=== PATIENT | male | born 1945 | race Caucasian/White ===

== ENCOUNTER 2016-07-08 08:00 | Inpatient (IN) ==
[2016-07-06 09:03] LABS: Basophils % 0.4 % (0.0-0.8); Eosinophils # 0.2 10*3/uL (0.0-0.87); Hematocrit 33.4 VOL% (42.0-52.0); Hemoglobin 10.1 GM/DL (14.0-18.0); Immature Granulocytes % 0.4 %; Immature Granulocytes Absolute 0.04 #; Lymphocytes # 1.3 10*3/uL (1.4-4.0); Lymphocytes % 14.1 % (21.2-54.2); Mean Corpuscular HGB Conc 30.2 GM/DL (32-36); Mean Corpuscular Hemoglobin 28 PG (27-34); Mean Platelet Volume 8.8 FL (9.6-12.0); Monocytes # 0.8 10*3/uL (0.11-0.8); Monocytes % 8.9 % (1.7-12.7); Neutrophils % 74.2 % (38.7-73.9); Platelet Count 343 T/CUMM (130-400); Red Blood Count 3.63 MC/CUMM (3.8-5.5); Red Cell Distribution Width 14.8 % (9.3-17.3); White Blood Count 9.4 T/CUMM (4-12)
--- NOTE | 2016-07-06 09:16 | XRay Report ---
XR chest 2V Date: 07/06/2016 12:00 AM History: Malignant neoplasm of rectum, dementia Comparison: None Technique: PA and lateral chest Findings: The heart is small and compressed by the overexpanded lungs. Probable chronic scarring in the lungs with asymmetric density of the right upper lobe location. 6.7 mm nodular density laterally in the right midlung zone. Minimal atelectasis. Unremarkable mediastinum with degenerative changes. 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 Asymmetric density in the right upper lobe which may be related to scarring but it is difficult to exclude other pleural-based pathology. Additional indeterminate 6.7 mm pulmonary nodule laterally in the right midlung zone. Follow-up chest x-ray or CT may be helpful for further evaluation. PROCEDURE INTERPRETED AT [facility] DEPARTMENT OF RADIOLOGY Final Report Signed by: Dr. Jeannette Dugan
--- NOTE | 2016-07-06 09:37 | CT Report ---
Referring physician: [facility] III EXAM: CT abdomen and pelvis with contrast DATE: 07/06/2016 COMPARISON: None REASON: Rectal cancer TECHNIQUE: Axial images of the abdomen and pelvis were obtained after administration of 100 cc of Omnipaque 350 IV contrast. Oral contrast was also administered. Coronal and sagittal reformatted images were also provided. Total DLP is 463.50 mGy*cm. FINDINGS: Subsegmental atelectasis/scarring at the visualized lung bases. Coronary artery calcifications. Minimal elongation of the right lobe of the liver with no dilated ducts. 6 mm, 3 mm, and 3 mm hypodensities in the left lobe of the liver. Contracted gallbladder with no definite gallstones identified. The spleen, pancreas and adrenal glands have an unremarkable appearance. 10 mm left lower pole renal calculus with no definite ureteral calculi. Calcification in the wall of the dilated abdominal aorta. The aorta measures 43 mm in maximal transverse diameter in the infrarenal location. Atheromatous plaque formation noted. Right common iliac artery measures 12 mm. Left common iliac artery measures 10 mm. Incomplete distention of the stomach with oral contrast mixed with food. No significant dilatation of the small bowel. Limited oral contrast in the distal colon with increased fecal material and diverticulosis. No evidence of diverticulitis, appendicitis free air, or free fluid. Ill-defined soft tissue mass in the rectal location. Unfortunately there is no significant oral contrast in the rectum. Probable extension of the mass into the perirectal fat especially on the right side. Enlarged lymph nodes just above the level of the right seminal vesicle. The prostate contains calcifications and measures 52 mm in diameter. No definite urinary bladder pathology is identified. Chronic L4 compression fracture with degenerative changes and ill-defined areas of rarefaction including a 15 mm finding at L2. IMPRESSION: Rectal mass with reported carcinoma with associated possible tiffany metastasis. Very small hypodensities in the liver which could be related to small cysts or early metastatic disease. Nonspecific contraction of the gallbladder with 10 mm left lower pole renal calculus. Diffuse arterial calcifications with 43 mm infrarenal AAA and minimal dilatation of the iliac arteries. Chronic appearing L4 compression fracture with indeterminate ill-defined areas of rarefaction. Nonspecific enlargement of the prostate. PET/CT and/or bone scan may be helpful for further evaluation of these findings. The CT exam was performed using one or more of the following dose reduction techniques: Automated exposure control and adjustment of the mA and/or kV according to patient size. PROCEDURE INTERPRETED AT [facility] DEPARTMENT OF RADIOLOGY Final Report Signed by: Dr. Jeannette Dugan
[2016-07-06 09:38] LABS: Albumin 3.2 G/DL (3.4-5.0); Bilirubin,Total 0.5 MG/DL (0.2-1.0); Calcium 9.3 MG/DL (8.5-10.1); Osmolality,Calculated 280.4 MOS/KG (273-304); Potassium 4.6 MMOL/L (3.5-5.1); Total Protein 6.8 G/DL (6.4-8.3)
[~2016-07-08 08:00] MED LIST: cefOXitin 1,000 MG in SODIUM CHLORIDE 0.9% 100 ML IV ONE
[2016-07-08] MEDS: LACTATED RINGERS 1,000 ML IV SCH (09:00)
[2016-07-08] MEDS ORDERED: SODIUM CHLORIDE 0.9% 100 ML IV ONE (09:15)
[2016-07-08] MEDS ORDERED: BUPIVACAINE MPF 0.25% /EPI 30 ML VIAL ONE (09:51)
[2016-07-08] MEDS ORDERED: ONDANSETRON 4 MG/2 ML VIAL IV PRN (11:26)
[2016-07-08] MEDS ORDERED: MORPHINE 2 MG/1 ML SYRINGE IV PRN (11:26)
--- NOTE | 2016-07-08 11:26 | Operative Note ---
Date of procedure: 07/08/16 Pre-op diagnosis: Locally advanced rectal cancer Post-op diagnosis: same Procedure: Laparoscopic sigmoid end colostomy Findings and technique: After informed consent was obtained the patient was brought to the operating room and placed in supine position. After successful induction with general anesthesia the patient's abdomen was prepped and draped in usual sterile fashion. The desired spot for colostomy placement had been marked preoperatively by the enterostomal therapy nurse. A circular incision was made at this location and dissection carried down to the fascia which was incised vertically and the peritoneal cavity entered under direct vision. I identified sigmoid colon and brought it up into the colostomy site with [place] and March the colon proximally with 2 long sutures and distally with a single long stitch suture. It was difficult to tell through this colostomy site if this was truly proximal or distal so I inserted a Norbert cannula and established a pneumoperitoneum and inserted the laparoscopic camera. Laparoscopy revealed no evidence of metastatic disease within the abdomen on the visualized surfaces and the liver appeared free of metastasis as well. I used laparoscopy to confirm that my orientation of the colon was correct and the camera and cannula were removed and the gas evacuated. The colon was then re-delivered up through the fascial defect and transected with a VAISHALI stapling device in the proximal end matured to the skin. A small vent was made in the distal and where it was sutured to the corner of the stoma so that this was essentially a double-barreled colostomy with a very small event of the distal colon segment. A colostomy bag was applied. The colostomy was matured to the skin prior to placement of the back with multiple Vicryl sutures and also the colon was sutured to the fascia with Vicryl suture. He appeared to tolerate the procedure well. Anesthesia: GETA Surgeon / Physician: Sandip Mojica III. Estimated blood loss: minimal Specimens: none sent Condition: stable Disposition: PACU Results - Labs CBC & BMP: 07/06/16 08:57 07/06/16 08:57 Discharge Plan - Discharge Medications No Action Donepezil [Aricept] 10 mg PO DAILY Memantine HCl [Namenda XR] 1 tablet PO BID Pedi Mv No.79/Ferrous Fumarate [Flintstones w/Iron Chew Tab] 2 tablet PO DAILY Fluticasone 50 Mcg Nasal [place] [Flonase Nasal [place]] 1 spray BOTH NARES DAILY Citalopram [CeleXA] 20 mg PO DAILY Cranberry Fruit Extract [Cranberry] 500 mg PO DAILY QUEtiapine [SEROquel] 25 mg PO BEDTIME Ibuprofen 600 mg PO TID - Follow Up or Referral - Forms/Instructions
--- NOTE | 2016-07-08 11:37 | Anesthesia Post-Op ---
Anesthesia Post OP - Post Ansesthetic Evaluation Patient seen in post op: Yes Resp: within normal limits CV: within normal limits Mental: within normal limits Temp: within normal limits [id number]: within normal limits Nausea and Vomiting: within normal limits Pain: within normal limits
[2016-07-08] MEDS ORDERED: ACETAMINOPHEN 1,000 MG/100 ML VIAL IV ONE (11:39)
[2016-07-08] MEDS ORDERED: SEVOFLURANE 1 UNIT/15 MINUTE INH ONE (11:39)
[2016-07-08] MEDS ORDERED: LACTATED RINGERS 1,000 ML IV ONE (11:39)
[2016-07-08] MEDS ORDERED: fentaNYL 100 MCG/2 ML VIAL ONE (11:39)
[2016-07-08] MEDS ORDERED: ALBUMIN 5% 12.5 GM/250 ML VIAL IV ONE (11:39)
[2016-07-08] MEDS ORDERED: MIDAZOLAM 2 MG/2 ML VIAL ONE (11:39)
[2016-07-08] MEDS ORDERED: ePHEDrine 50 MG/ML AMP ONE (11:40)
--- NOTE | 2016-07-08 15:57 | Event Note ---
Patient is postop day 0 status post laparoscopic end colostomy. The patient is sitting up in the bed and has completed a full tray without nausea or vomiting. He denies significant pain. Does not get out of bed at this time. His neuro status is compromised so ROS is not completely reliable, but family member at bedside corroborates history. Denies chest pain, shortness of breath, wheeze or cough. Vitals are stable Heart regular rate and rhythm Lungs clear to auscultation bilaterally Abdomen with ostomy site with pink stoma and bag intact. No stool present at this time. Abdomen is soft and minimally tender. Bowel sounds are hypoactive. Extremities: No calf tenderness or pedal edema is appreciated Assessment and plan: Patient is stable postoperatively today. Continue current plan of care. Pain management. Diet as tolerated. Encourage incentive spirometer and advance activity as tolerated. Family member the room reports Dr. Hrat requesting a CT of his carotids due to significantly significant stenosis found outpatient on a carotid Doppler; and she is requesting we complete this while the patient is here. We will inquire exactly what imaging is recommended to see if this is appropriate.
[2016-07-08] MEDS: DEXTROSE 5% NACL 0.45% 1,000 ML IV SCH (18:29)
[2016-07-08] MEDS: QUEtiapine 25 MG TABLET PO SCH (21:33)
[2016-07-08] MEDS: MEMANTINE 10 MG TABLET PO SCH (21:33)
[2016-07-09] MEDS: DEXTROSE 5% NACL 0.45% 1,000 ML IV SCH ×4 (03:30→20:38)
[2016-07-09] MEDS: ENOXAPARIN 30 MG/0.3 ML SYRINGE SUBCUT SCH (05:37)
[2016-07-09 07:29] LABS: Basophils % 0.1 % (0.0-0.8); Hematocrit 30.5 VOL% (42.0-52.0); Hemoglobin 9.4 GM/DL (14.0-18.0); Immature Granulocytes % 0.6 %; Immature Granulocytes Absolute 0.05 #; Lymphocytes # 0.6 10*3/uL (1.4-4.0); Lymphocytes % 6.3 % (21.2-54.2); Mean Corpuscular HGB Conc 30.8 GM/DL (32-36); Mean Corpuscular Hemoglobin 28 PG (27-34); Mean Corpuscular Volume 90.5 FL (87-102); Mean Platelet Volume 8.8 FL (9.6-12.0); Monocytes # 0.3 10*3/uL (0.11-0.8); Neutrophils # 8.1 10*3/uL (1.4-7.4); Platelet Count 296 T/CUMM (130-400); Red Blood Count 3.37 MC/CUMM (3.8-5.5); Red Cell Distribution Width 14.5 % (9.3-17.3)
[2016-07-09 08:05] LABS: Calcium 8.6 MG/DL (8.5-10.1); Osmolality,Calculated 277.7 MOS/KG (273-304); Potassium 4.6 MMOL/L (3.5-5.1)
[2016-07-09] MEDS ORDERED: DONEPEZIL 10 MG TABLET PO SCH (09:00)
[2016-07-09] MEDS ORDERED: CITALOPRAM 20 MG TABLET PO SCH (09:00)
[2016-07-09] MEDS: MEMANTINE 10 MG TABLET PO SCH ×2 (09:03→17:36)
[2016-07-09] MEDS: LACTATED RINGERS 1,000 ML IV SCH (09:03)
[2016-07-09] MEDS: FLUTICASONE 50 MCG NASAL SPRAY 16 GM BOTTLE BOTH NARES SCH (09:03)
[2016-07-09] MEDS ORDERED: MORPHINE 2 MG/1 ML SYRINGE IM PRN (13:09)
--- NOTE | 2016-07-09 13:18 | Event Note ---
S: Patient is postop day #1 status post laparoscopic sigmoid end colostomy as part of treatment for locally advanced rectal cancer. The patient has advanced dementia and has been with the bedside and serves and assisting in communication. He has tolerated oral intake with some reflux symptoms overnight , but he is eating a regular diet well. Tolerating fluids and voiding and his brief. Had an episode of increased pain overnight for she received morphine which caused hallucinations; resolved without intervention. Signs of chest pain , shortness of breath, wheeze or cough overnight. No output from the colostomy. O: Vital signs stable Heart regular rate and rhythm Lungs clear to auscultate bilaterally Abdomen colostomy site with pink stoma and no evidence of surrounding skin irritation. Gas noted in colostomy bag with a few cc of blood. Abdomen is soft and appropriately tender postoperatively. Bowel sounds are present. Extremities: No pedal edema noted. Calves soft and nontender.\ Assessment and plan: Patient is postop day #1 status post laparoscopic sigmoid and colostomy as part of treatment for locally advanced rectal cancer. Currently stable. Monitor bowel function. Diet as tolerated Encourage mobilization. Avoid IV narcotics if possible. Scheduled dementia meds as dosed at home. DVT ppx: SCD. Lovenox. Gi ppx: ppi daily. Dispo: pt can d/c home with family and HH services (established with Marco ) once colostomy function apparent.
--- NOTE | 2016-07-09 14:37 | Discharge Summary ---
Hospital Course - Hospital Course Hospital Course: Patient is a 71-year-old male who underwent laparoscopic sigmoid end colostomy for locally advanced rectal cancer. He required inpatient hospitalization for pain management and to ensure colostomy function. He was ultimately tolerating a full regular diet without difficulty, tolerating activities without difficulty , voiding without difficulty and had function of his colostomy. He was ultimately discharged home in the care of his family who is very active as he has advanced dementia with the assistance of home health services in good condition. Diagnosis - Discharge Diagnosis (1) Rectal cancer Status: Acute (2) Status post colostomy Status: Acute Specialty Discharge - Follow Up or Referrals Follow up with: Sandip Mojica III., MD [Physician] - 07/28/16 9:15 am Discharge Plan - Discharge Data Disposition: Home Health Service Condition at Discharge: Stable Discharge Diet: advance to your usual diet Activity: resume usual activities as tolerated Hygiene: may shower Contact your physician if you experience:: fever over 101, Difficulty voiding, Redness or swelling, Nausea/Vomiting, Shortness of breath, Bleeding, pain uncontrolled by pain medications Wound / Dressing Care Instructions: Routine colostomy care with home health services - Discharge Medications New HYDROcodone/ACETAMIN 7.5-325 [[place] 7.5-325] 0.5 - 1 tablet PO Q6H PRN #20 tablet PRN Reason: Pain Moderate To Severe (4-10) Continue Donepezil [Aricept] 10 mg PO DAILY Memantine HCl [Namenda XR] 1 tablet PO BID Pedi Mv No.79/Ferrous Fumarate [Flintstones w/Iron Chew Tab] 2 tablet PO DAILY Fluticasone 50 Mcg Nasal [place] [Flonase Nasal [place]] 1 spray BOTH NARES DAILY Citalopram [CeleXA] 20 mg PO DAILY Cranberry Fruit Extract [Cranberry] 500 mg PO DAILY QUEtiapine [SEROquel] 25 mg PO BEDTIME Ibuprofen 600 mg PO TID - Follow Up or Referral Follow Up: Sandip Mojica III., MD [Physician] - 07/28/16 9:15 am Doc Shipman MD [Physician] - (TBD - review at Dr. Mojica appt when pathology available for review) - Forms/Instructions Instructions: Colostomy Care (DC) Additional Discharge Instructions: F/u PCP 1-2 wks for routine hospital follow up Exam - Constitutional Vitals: Period Temp Pulse Resp BP Sys/Doherty Pulse Ox Last 24 Hr 97.8 F-99.0 F 58-75 16-19 127-165/57-90 97-100 General appearance: no acute distress, other (Family member at bedside for care instructions) - Head Head exam: Present: normal inspection, normocephalic, atraumatic - Eye Eye exam: Absent: conjunctival injection, scleral icterus - Respiratory Respiratory exam: Present: clear to auscultation bilaterally - Cardiovascular Cardiovascular exam: Present: regular rate and rhythm - GI/Abdominal GI/Abdominal exam: Present: normal bowel sounds, soft, other (colostomy with stool present; stoma pink and now surrounding skin irritation noted). Absent: distended, tenderness - Neurological Exam Neurological exam: Present: alert, oriented X3 - Psychiatric Psychiatric exam: Present: normal affect, normal mood - Skin Skin exam: Present: normal color, warm Discharge Results Procedures and tests throughout hospitalization: Pending Orders 07/10/16 04:00 Basic Metabolic Panel IN AM Labs on day of discharge: Labs from last 24 hours 07/09/16 07/09/16 06:55 06:55 WBC 9.0 RBC 3.37 L Hgb 9.4 L Hct 30.5 L MCV 90.5 MCH 28 MCHC 30.8 L RDW 14.5 Plt Count 296 MPV 8.8 L Neut % (Auto) 90.0 H Lymph % (Auto) 6.3 L [place] % (Auto) 3.0 Eos % (Auto) 0.0 Baso % (Auto) 0.1 Neut # (Auto) 8.1 H Lymph # (Auto) 0.6 L [place] # (Auto) 0.3 Eos # (Auto) 0.0 Baso # (Auto) 0.0 Immature Gran % 0.6 Nucleated RBC % 0.0 Immature Gran # 0.05 Nucleated RBCs # 0.00 Sodium 138 Potassium 4.6 Chloride 103 Carbon Dioxide 28 Anion Gap 11.6 BUN 13 Creatinine 1.60 H GFR Calculation 45 BUN/Creatinine Ratio 8.00 Glucose 157 H Calculated Osmolality 277.7 Calcium 8.6 - Imaging and Cardiology Procedure: Chest x-ray: image reviewed by me, report reviewed by me, CT Abdomen and Pelvis: image reviewed by me, report reviewed by me DS: Provider Date of admission: 07/08/2016 Primary care physician: Rod Powell DO Attending physician on admission: Sandip Galina, III Consults: 07/09/16 10:01 Consult to Case Mgmt/Social Srvs [CONS] Routine Reason for Case Mgmt/Social Srvs: Home Health Consult Comment: Ostomy nurse to teach & care for Pt's Colectomy. Pt has Deaconness 07/09/16 13:10 Consult to Wound Care - [place] [CONS] Routine Reason for Wound Care: Other Consult Comment: routine colostomy care Discharging clinician: Bailey Kowalski PA-C
[2016-07-09] MEDS: QUEtiapine 25 MG TABLET PO SCH (20:38)
[2016-07-10] MEDS: DEXTROSE 5% NACL 0.45% 1,000 ML IV SCH ×2 (01:06→10:40)
[2016-07-10] MEDS: ENOXAPARIN 30 MG/0.3 ML SYRINGE SUBCUT SCH (06:00)
[2016-07-10] MEDS: MEMANTINE 10 MG TABLET PO SCH ×3 (06:26→08:17)
[2016-07-10] MEDS: DONEPEZIL 10 MG TABLET PO SCH ×2 (06:26→08:16)
[2016-07-10] MEDS: CITALOPRAM 20 MG TABLET PO SCH ×2 (06:26→08:16)
[2016-07-10 07:27] LABS: Calcium 8.3 MG/DL (8.5-10.1); Osmolality,Calculated 277.4 MOS/KG (273-304); Potassium 3.9 MMOL/L (3.5-5.1)
[2016-07-10] MEDS: LACTATED RINGERS 1,000 ML IV SCH (08:12)
[2016-07-10] MEDS: FLUTICASONE 50 MCG NASAL SPRAY 16 GM BOTTLE BOTH NARES SCH (08:17)
--- NOTE | 2016-07-10 15:08 | Event Note ---
T-max 100.0 vital signs stable. Tolerating a diet with no nausea or vomiting. Creatinine normal. Abdomen is soft nondistended and no tenderness elicited. Stoma is pink and patent with lots of air but no stool in the bag. We will continue his current diet and await functioning of his colostomy before discharge.
[2016-07-10] MEDS: QUEtiapine 25 MG TABLET PO SCH (20:36)
[2016-07-11] MEDS: ENOXAPARIN 30 MG/0.3 ML SYRINGE SUBCUT SCH (05:38)
[2016-07-11] MEDS: DONEPEZIL 10 MG TABLET PO SCH (08:52)
[2016-07-11] MEDS: MEMANTINE 10 MG TABLET PO SCH ×2 (08:52)
[2016-07-11] MEDS: CITALOPRAM 20 MG TABLET PO SCH (08:52)
[2016-07-11] MEDS: FLUTICASONE 50 MCG NASAL SPRAY 16 GM BOTTLE BOTH NARES SCH (08:52)
[2016-07-11] MEDS: LACTATED RINGERS 1,000 ML IV SCH (10:26)
--- NOTE | 2016-07-11 12:06 | Event Note ---
Patient looks good but says he does not feel as well today. T-max 99.9 vital signs stable. He is tolerating a diet. On exam unable to appreciate any significant tenderness. The stoma is pink and patent and now working with good stooling in the back. He denies nausea. Admits to some abdominal pain but his exam is unimpressive. His family is not with him today and he is not a good historian because of his dementia. Will continue current treatment and possibly home tomorrow.
[2016-07-11] MEDS: ACETAMINOPHEN 325 MG TABLET PO PRN (15:45)
[2016-07-11] MEDS: QUEtiapine 25 MG TABLET PO SCH (21:02)
[2016-07-11] MEDS: DESITIN 4OZ/NYSTATIN 15 GRAM MIXTURE PASTE TOP SCH (21:02)
[2016-07-12] MEDS: ENOXAPARIN 30 MG/0.3 ML SYRINGE SUBCUT SCH (05:17)
[2016-07-12] MEDS: CITALOPRAM 20 MG TABLET PO SCH (08:41)
[2016-07-12] MEDS: DONEPEZIL 10 MG TABLET PO SCH (08:42)
[2016-07-12] MEDS: MEMANTINE 10 MG TABLET PO SCH ×2 (08:42)
[2016-07-12] MEDS: FLUTICASONE 50 MCG NASAL SPRAY 16 GM BOTTLE BOTH NARES SCH (08:42)
[2016-07-12] MEDS: DESITIN 4OZ/NYSTATIN 15 GRAM MIXTURE PASTE TOP SCH (08:42)
--- NOTE | 2016-07-12 09:03 | Event Note ---
He feels well. He is tolerating a diet and his ostomy is functioning well. His abdomen is benign I see no evidence of complications. Should be fine for discharge and I will follow him up in the office in the next couple weeks.
[2016-07-12] MEDS: ACETAMINOPHEN 325 MG TABLET PO PRN (11:05)
[2016-07-12 11:48] VITALS: BP 127/71
--- NOTE | 2016-07-12 12:31 | Physician Query Form ---
CLICK EDIT DOCUMENT TO SELECT QUERY ANSWER --> OK --> SIGN Ana María Campos RN Clinical Buffer Copper W) [phone] (f) [phone] [email or web address] PROVIDERS: Make your selection(s) from the choices in EACH section by typing an "x" and enter comments in the comment section. Please use your independent medical judgment in providing your response. This request does not imply that any particular answer is desired or expected. CLINICAL INDICATORS: (Providers should not edit this section) Based on lab results of creatinine of 1.60 and with a GFR of 45 and decreased to 1.00. Pt. treated with IV fluids. Clarify which of the following most accurately represents the patient's renal status: (x) Acute kidney injury (non-traumatic) ( ) Acute renal failure ( ) Acute renal failure with underlying Chronic Kidney Disease (CKD) - please provide stage below ( ) CKD - please provide stage below ( ) Other, please specify: ( ) Clinically unable to determine Chronic Kidney Disease Stages Source: National Kidney Disease Foundation ( ) Stage I (eGFR > or = 90) ( ) Stage II (eGFR 60 - 89) ( ) Stage III (eGFR 30 - 59) ( ) Stage IV (eGFR 15 - 29) ( ) Stage V (eGFR < 15 or dialysis) COMMENTS: Acute kidney injury which occurred and resolved during hospitalization. Documented in discharge summary. PLEASE ALSO DOCUMENT RESPONSE IN PROGRESS NOTES AND/OR DISCHARGE SUMMARY Use of terms such as suspected, likely, or probable (associated with a specific diagnosis that is being evaluated, monitored, or treated as if it exists) are acceptable and can be restated in the discharge summary if not ruled out. MTDD
[2016-07-13] MEDS ORDERED: ENOXAPARIN 40 MG/0.4 ML SYRINGE SUBCUT SCH (09:00)
== END 2016-07-12 12:39 | disposition home health service (06) | DRG 330 ==
LOC: N.OR 08:00 → N.SDSINP 08:00 → EDSTATUS 11:00 → N.3E 13:11 → UNDODISIN 07-12 12:39
PROVIDERS: ADMIT Surgery; ATTEND Surgery

== ENCOUNTER 2016-08-03 00:08 | Inpatient (IN) ==
[2016-08-03] MEDS ORDERED: PROMETHAZINE 25 MG/1 ML VIAL ONE (00:17)
[2016-08-03] MEDS ORDERED: HYDROmorphone 2 MG/1 ML VIAL ONE (00:18)
[2016-08-03] MEDS ORDERED: ONDANSETRON 4 MG/2 ML VIAL ONE ×2 (00:21→01:27)
[2016-08-03] MEDS ORDERED: ONDANSETRON 4 MG/2 ML VIAL IV STA (00:35)
[2016-08-03] MEDS ORDERED: METOCLOPRAMIDE 10 MG/2 ML VIAL IV STA (00:35)
[2016-08-03] MEDS ORDERED: SODIUM CHLORIDE 0.9% 1,000 ML IV STA (00:35)
[2016-08-03] MEDS ORDERED: PANTOPRAZOLE 40 MG VIAL IV STA (00:35)
--- NOTE | 2016-08-03 00:41 | Emergency Department Note ---
Arrival - Arrival Chief Complaint: Non-Specific Stated Complaint: vomitting blood , severe rectal ED Nursing Triage Note: hx of rectal ca, daughter states patient started having rectal since this morning with vomiting large clots of blood. Mode of Arrival: Wheelchair Limitations: No Limitations Source: Patient Time Seen by Provider: 08/03/16 00:35 - History of Present Illness HPI Narrative: This 71-year-old white male with rectal carcinoma awaiting initiation of chemotherapy and radiation treatments presents per the family with significant recurrent rectal bleeding producing large clots throughout the day. Later this evening this was complicated by nausea and vomiting productive of coffee-ground emesis. The patient is currently on Plavix for vascular dementia despite his ongoing problem with the carcinoma. At the moment he does have a colostomy after initial surgery for the lesion and material in the colostomy bag has been free of blood. Dr. Galina NEELY did perform the initial surgery on this gentleman and he is being followed by Dr. Richard for radiation oncology services and Dr. Shipman for oncologic treatment. Of note, hematocrit July 09 was 30 .5. The patient has significant dementia and cannot give any cognizant history with all the information being obtained from the family members. Onset (ago): hour(s) (Patient presents approximately 18 hours post onset of symptom) Allergies/Adverse Reactions: Allergies Allergy/AdvReac Type Severity Reaction Status Date / Time No Known Allergies Allergy Verified 07/07/16 07:54 Home Medications: Home Medications Medication Instructions Recorded Confirmed Type Donepezil [Aricept] 10 mg PO DAILY 04/18/16 08/03/16 History Ibuprofen 600 mg PO TID 07/07/16 08/03/16 History Memantine HCl [Namenda XR] 1 tablet PO BID 07/07/16 08/03/16 History QUEtiapine [SEROquel] 25 mg PO BEDTIME 07/07/16 08/03/16 History Citalopram [CeleXA] 20 mg PO DAILY 07/08/16 08/03/16 History Cranberry Fruit Extract [Cranberry] 500 mg PO DAILY 07/08/16 08/03/16 History Fluticasone 50 Mcg Nasal [place] 1 spray BOTH NARES DAILY 07/08/16 08/03/16 History [Flonase Nasal [place]] Pedi Mv No.79/Ferrous Fumarate 2 tablet PO DAILY 07/08/16 08/03/16 History [Flintstones w/Iron Chew Tab] HYDROcodone/ACETAMIN 7.5-325 0.5 - 1 tablet PO Q6H PRN #20 07/09/16 08/03/16 Rx [[place] 7.5-325] tablet Clopidogrel [Plavix] 75 mg PO DAILY 08/03/16 08/03/16 History fentaNYL 12 MCG/HR PATCH 1 patch TRANSDERM Q3DAY 08/03/16 08/03/16 History [Duragesic 12 Patch] Review of System - Review of System 12 point system: reviewed and no additional remarkable complaints except as stated - Review of System Constitutional: Present: as per HPI Gastrointestinal: Present: as per HPI Medical,Surgical,& Family Hx - Medical History Neurology: History of: Dementia No history of: Seizures - Social History Smoking Status: Former smoker Frequency of Alcohol Use: None Type of Drug Use: None Exam Physical Examination: GENERAL: Frail cachectic chronically ill-appearing white male. HEENT: Normocephalic. No trauma. Moist mucous membranes. EOMI. PERRLA. ENT NML NECK: Supple. No adenopathy. CARDIAC: Regular. No murmurs. Heart rate 75 CHEST: Clear to auscultation. No respiratory distress. O2 sat 98% ABDOMEN: Soft. Nontender. Hypoactive bowel sounds. Left lower quadrant colostomy bag EXTREMITIES: No trauma. Normal ROM. No pedal edema. SKIN: No diaphoresis. No rash. NEURO: Alert. Oriented to person place not so time, motor, sensory, vibratory grossly intact. No focal deficits. Vital Signs: Vital Signs Temperature 97.4 F L 08/03/16 00:12 Pulse Rate 75 08/03/16 00:12 Respiratory Rate 20 08/03/16 00:12 Blood Pressure 159/79 08/03/16 00:12 O2 Sat by Pulse Oximetry 98 08/03/16 00:12 Course - Reevaluation(s) Reevaluation #1: This discussed with family the results of additional studies which revealed no serious abnormalities and in fact improvement in the hematocrit. However because he may be yet equilibrating it may be in fact lower. However, he will be admitted for further evaluation treatment - Consultations Consultation #1: Discussed with Dr. Rader who stated that as the patient has not yet started chemotherapy he would not be followed by their group for this problem at this point time. Consultation #2: Discussed with the hospitalist service who will admit for further evaluation and treatment. Results - Labs CBC & BMP: 08/03/16 01:16 08/03/16 01:16 Labs: I have reviewed the laboratory noted the low hematocrit; however, this hematocrit has risen since June when it was 30.9. - Impressions EKG: Sinus rhythm with occasional PVC with normal MT interval and QRS duration although prolonged QT interval noted. Diffuse nonspecific ST changes no acute injury pattern noted. Disposition Clinical Impression: Rectal bleed, Metastatic colon cancer, Status post colostomy, Severe dementia Case discussed with: patient's family Disposition: Still a Patient Condition: Guarded Time of Disposition: 02:10
[2016-08-03] MEDS ORDERED: PANTOPRAZOLE 40 MG VIAL IV ONE (01:25)
[2016-08-03] MEDS ORDERED: METOCLOPRAMIDE 10 MG/2 ML VIAL ONE (01:26)
[2016-08-03 01:44] LABS: Basophils % 0.2 % (0.0-0.8); Eosinophils # 0.1 10*3/uL (0.0-0.87); Eosinophils % 0.6 % (0.00-10.9); Hemoglobin 10.6 GM/DL (14.0-18.0); Immature Granulocytes % 0.5 %; Immature Granulocytes Absolute 0.05 #; Lymphocytes # 1.3 10*3/uL (1.4-4.0); Lymphocytes % 12.3 % (21.2-54.2); Mean Corpuscular HGB Conc 32.1 GM/DL (32-36); Mean Corpuscular Hemoglobin 27 PG (27-34); Mean Corpuscular Volume 84.6 FL (87-102); Mean Platelet Volume 8.9 FL (9.6-12.0); Monocytes # 0.5 10*3/uL (0.11-0.8); Monocytes % 5.2 % (1.7-12.7); Neutrophils # 8.4 10*3/uL (1.4-7.4); Neutrophils % 81.2 % (38.7-73.9); Platelet Count 339 T/CUMM (130-400); Red Cell Distribution Width 13.5 % (9.3-17.3); White Blood Count 10.4 T/CUMM (4-12)
[2016-08-03 01:46] LABS: Alanine Aminotransferase 18 U/L (16-61); Albumin 3.2 G/DL (3.4-5.0); Alkaline Phosphatase 54 U/L (45-117); Aspartate Amino Transferase 21 U/L (0-37); Bilirubin,Total < 0.39 MG/DL (0.2-1.0); Blood Urea Nitrogen 24 MG/DL (7-18); Calcium 9.3 MG/DL (8.5-10.1); Glucose 198 MG/DL (74-106); Osmolality,Calculated 290.3 MOS/KG (273-304); Potassium 3.7 MMOL/L (3.5-5.1); Sodium 141 MMOL/L (136-145); Total Protein 7.2 G/DL (6.4-8.3); Troponin I Only < 0.015 NG/ML (0.00-0.045)
[2016-08-03 01:47] LABS: Partial Thromboplastin Time 27.7 SECS (0-40)
[2016-08-03] MEDS ORDERED: ONDANSETRON 4 MG/2 ML VIAL IV PRN ×2 (02:48→18:06)
[2016-08-03] MEDS ORDERED: SODIUM CHLORIDE 0.9% 1,000 ML IV SCH (03:00)
--- NOTE | 2016-08-03 03:05 | Hospitalist History & Physical ---
Assessment and Plan (1) Blood per rectum Status: Acute Current Visit: Yes (2) Rectal cancer Status: Acute Current Visit: No (3) Status post colostomy Status: Acute Assessment and plan: Our plan for this patient will be admitting him to our service. He is a DNR. Family reports of blood transfusions would be okay. Will monitor his H&H every 6 hours and transfuse as needed. Will con consult Dr. Shipman for his input on the care of this patient. My understanding that they will be starting chemotherapy and radiation fairly soon. Current Visit: No History of Present Illness Chief complaint: Blood coming from rectum History of present illness: Mr. Richard is a 71 year old male with past medical history significant for severe dementia and colorectal cancer who is cared for at home by his family is brought into the emergency room tonight. Patient had a recent colostomy performed by Dr. Galina NEELY. He had a follow-up appointment on Tuesday a week ago. They were instructed it was okay to to restart his Plavix. Dr. Willard wants the patient to be on Plavix secondary to his vascular dementia. Patient today started passing large amounts of blood. His [id number]-[id number] reports that he coughed and threw up some small amount of blood but had a baseball size clot come out of his rectum. They got concerned and brought him up to our hospital for further evaluation. We were requested by the ER to admit him to our service since he has not yet started actual chemotherapy. Patient is unable to really contribute any to his own history secondary to his dementia. He is a DO NOT RESUSCITATE per family request. Home Medications Medication Instructions Recorded Confirmed Type Donepezil [Aricept] 10 mg PO DAILY 04/18/16 08/03/16 History Ibuprofen 600 mg PO TID 07/07/16 08/03/16 History Memantine HCl [Namenda XR] 1 tablet PO BID 07/07/16 08/03/16 History QUEtiapine [SEROquel] 25 mg PO BEDTIME 07/07/16 08/03/16 History Citalopram [CeleXA] 20 mg PO DAILY 07/08/16 08/03/16 History Cranberry Fruit Extract [Cranberry] 500 mg PO DAILY 07/08/16 08/03/16 History Fluticasone 50 Mcg Nasal [place] 1 spray BOTH NARES DAILY 07/08/16 08/03/16 History [Flonase Nasal [place]] Pedi Mv No.79/Ferrous Fumarate 2 tablet PO DAILY 07/08/16 08/03/16 History [Flintstones w/Iron Chew Tab] HYDROcodone/ACETAMIN 7.5-325 0.5 - 1 tablet PO Q6H PRN #20 07/09/16 08/03/16 Rx [[place] 7.5-325] tablet Clopidogrel [Plavix] 75 mg PO DAILY 08/03/16 08/03/16 History fentaNYL 12 MCG/HR PATCH 1 patch TRANSDERM Q3DAY 08/03/16 08/03/16 History [Duragesic 12 Patch] Allergies Allergy/AdvReac Type Severity Reaction Status Date / Time No Known Allergies Allergy Verified 07/07/16 07:54 Medical,Surgical,& Family Hx - Medical History Neurology: History of: Dementia No history of: Seizures Gastrointestinal: History of: Gastrointestinal Cancer - Surgical History Abdominal Surgeries: Surgical HX of: Abdominal Surgery - Family History Family History: Reports;: Family Hypertension - Social History Smoking Status: Former smoker Frequency of Alcohol Use: None Type of Drug Use: None ROS unobtainable: due to mental status Exam - Constitutional Vitals: Period Temp Pulse Resp BP Sys/[place]herty Pulse Ox Last 24 Hr 97.4 F 75 20-20 159/79 98 General appearance: under weight, cachectic - Head Head exam: Present: normal inspection - Eye Pupils: Present: PAULO - ENT ENT exam: Present: normal exam - Neck Neck exam: Present: normal inspection - Respiratory Respiratory exam: Present: clear to auscultation bilaterally - Cardiovascular Cardiovascular exam: Present: regular rate and rhythm - GI/Abdominal GI/Abdominal exam: Present: hypoactive bowel sounds, other (Colostomy in place no blood in colostomy bag appreciated) - Extremities Exam Extremities exam: Present: normal inspection - Back Exam Back exam: Present: normal inspection - Neurological Exam Neurological exam: Present: alert (Oriented to person) - Psychiatric Psychiatric exam: Present: normal affect - Skin Skin exam: Present: other (Pale) Results - Labs CBC & BMP: 08/03/16 01:16 08/03/16 01:16
[2016-08-03] MEDS ORDERED: DEXTROSE 50% 25 GM/50 ML VIAL IV PRN ×2 (03:17→15:39)
[2016-08-03] MEDS ORDERED: GLUCAGON 1 MG VIAL IM PRN ×2 (03:17→15:39)
--- NOTE | 2016-08-03 08:17 | EKG Report ---
Stationary ECG Study [facility] ER Test Date: 08/03/2016 1:45:03 AM Pat Name: PORFIRIO QUEEN Department: Room: 424 Gender: M Van Driver: REGIS : 1945 Requested by: Pedro Luis Vazquez Order Number: [id number] Fabio MD: IFEANYI BROOKS Intervals [place] Rate: 68 P: 91 VT: 172 QRS: 87 QRSD: 85 T: 89 QT: 453 QTc: 469 Interpretive Statements SINUS RHYTHM WITH OCCASIONAL VENTRICULAR PREMATURE COMPLEXES PROLONGED QT INTERVAL Electronically Signed On 08-04-16 17:03:23 CDT by IFEANYI BROOKS [email or web address]
[2016-08-03 08:22] LABS: Hemoglobin 9.7 GM/DL (14.0-18.0)
[2016-08-03 08:54] LABS: Albumin 3.1 G/DL (3.4-5.0); Bilirubin,Total 0.5 MG/DL (0.2-1.0); Osmolality,Calculated 285.3 MOS/KG (273-304); Potassium 4.2 MMOL/L (3.5-5.1); Total Protein 6.9 G/DL (6.4-8.3)
[2016-08-03] MEDS ORDERED: fentaNYL 12 MCG/HR PATCH TRANSDERM SCH (09:00)
--- NOTE | 2016-08-03 09:00 | Oncology Progress Note ---
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 Patient with some degree of exophytic mass on examination. Recent events noted including colostomy. Severe dementia by history and by physical examination today. Hospitalist H&P reviewed with Plavix administration noted due to severe vascular dementia. H&H is relatively stable this morning. No family was present. DNR status is noted. He was seen on July 30 for his initial radiotherapy consultation and at this point is still several days away from initiation of treatment. Chemotherapy was scheduled to be twice daily oral dosing. I would like to discuss this particular case with his son and [id number] to see if they still in fact wished to proceed with treatment or would rather pursue a more palliative approach Exam - Constitutional Vitals: Period Temp Pulse Resp BP Sys/[place]herty Pulse Ox Last 24 Hr 97.4 F-97.8 F 59-75 18-20 129-177/79-88 98-100 Results - Labs CBC & BMP: 08/03/16 07:45 08/03/16 07:46
[2016-08-03] MEDS: INSULIN REGULAR 100 UNIT/ML SUBCUT SCH ×4 (09:08→20:04)
[2016-08-03] MEDS: CITALOPRAM 20 MG TABLET PO SCH (09:14)
[2016-08-03] MEDS: MEMANTINE 10 MG TABLET PO SCH ×2 (09:14→20:19)
[2016-08-03] MEDS: DONEPEZIL 10 MG TABLET PO SCH (09:14)
[2016-08-03] MEDS: FLUTICASONE 50 MCG NASAL SPRAY 16 GM BOTTLE BOTH NARES SCH (09:14)
[2016-08-03] MEDS: PANTOPRAZOLE 40 MG VIAL IV SCH (09:14)
[2016-08-03] MEDS ORDERED: fentaNYL 25 MCG/HR PATCH TRANSDERM SCH (11:00)
[2016-08-03 11:17] LABS: Hematocrit 32.4 VOL% (42.0-52.0); Hemoglobin 10.2 GM/DL (14.0-18.0)
[2016-08-03 17:43] LABS: Hematocrit 30.5 VOL% (42.0-52.0); Hemoglobin 9.8 GM/DL (14.0-18.0)
[2016-08-03] MEDS ORDERED: chlorproMAZINE 25 MG TABLET PO PRN (18:06)
[2016-08-03] MEDS ORDERED: LOPERAMIDE 2 MG CAPSULE PO PRN ×2 (18:06)
[2016-08-03] MEDS ORDERED: ALPRAZolam 0.25 MG TABLET PO PRN (18:06)
[2016-08-03] MEDS ORDERED: ALUMINUM/MAGNES/SIMETH MAX STR 30 ML UDCUP PO PRN (18:06)
[2016-08-03] MEDS ORDERED: MYLANTA/LIDO VISC 2:1 300 ML BOTTLE SWISH/SPIT PRN (18:06)
[2016-08-03] MEDS ORDERED: LACTULOSE 20 GM/30 ML UDCUP PO PRN (18:06)
[2016-08-03] MEDS ORDERED: guaiFENesin 200 MG/10 ML UDCUP PO PRN (18:06)
[2016-08-03] MEDS ORDERED: BENZTROPINE 2 MG/2 ML AMP IV PRN (18:06)
[2016-08-03] MEDS ORDERED: diphenhydrAMINE CAP 25 MG CAPSULE PO PRN (18:06)
[2016-08-03] MEDS ORDERED: ACETAMINOPHEN 325 MG TABLET PO PRN (18:06)
[2016-08-03] MEDS ORDERED: chlorproMAZINE INJ 50 MG in SODIUM CHLORIDE 0.9% 100 ML IV PRN (18:06)
[2016-08-03] MEDS ORDERED: traMADol 50 MG TABLET PO PRN (18:06)
[2016-08-03] MEDS ORDERED: TEMAZEPAM 7.5 MG CAPSULE PO PRN (18:06)
[2016-08-03] MEDS ORDERED: PROMETHAZINE INJ 25 MG in SODIUM CHLORIDE 0.9% 50 ML IV PRN (18:06)
[2016-08-03] MEDS ORDERED: MAGNESIUM HYDROXIDE SUSP 30 ML UDCUP PO PRN (18:06)
[2016-08-03] MEDS ORDERED: chlorproMAZINE INJ 25 MG in SODIUM CHLORIDE 0.9% 100 ML IV PRN (18:06)
[2016-08-03] MEDS ORDERED: MYLANTA/LIDO VISC 2:1 300 ML BOTTLE SWISH/SWAL PRN (18:06)
--- NOTE | 2016-08-03 18:20 | Event Note ---
Spoke with patient's [id number]-tyq. We will proceed with radiotherapy in hopes of at least decreasing tumor burden. This should alleviate symptoms of pain and also further bleeding. It is highly unlikely that we will reach a point of curative resection. I have reviewed today's labs and will discontinue hemoglobin and hematocrit testing with plans to repeat this in the a.m. The patient has antipsychotic medications ordered for symptoms of sundowning. I have escalated his transdermal pain patch earlier today. We could consider for discharge as early as tomorrow if no further bleeding is noted. I believe the Plavix, which has been discontinued, had a substantial contribution to this bleeding episode.
[2016-08-03] MEDS: QUEtiapine 25 MG TABLET PO SCH ×2 (18:44→20:12)
[2016-08-03] MEDS ORDERED: QUEtiapine 25 MG TABLET PO SCH (21:00)
[2016-08-04 05:39] LABS: Basophils % 0.4 % (0.0-0.8); Eosinophils # 0.1 10*3/uL (0.0-0.87); Eosinophils % 1.4 % (0.00-10.9); Hematocrit 30.8 VOL% (42.0-52.0); Hemoglobin 9.7 GM/DL (14.0-18.0); Immature Granulocytes % 0.5 %; Immature Granulocytes Absolute 0.04 #; Lymphocytes % 23.1 % (21.2-54.2); Mean Corpuscular HGB Conc 31.5 GM/DL (32-36); Mean Corpuscular Hemoglobin 27 PG (27-34); Mean Corpuscular Volume 85.3 FL (87-102); Mean Platelet Volume 8.9 FL (9.6-12.0); Monocytes # 0.7 10*3/uL (0.11-0.8); Monocytes % 8.3 % (1.7-12.7); Neutrophils # 5.6 10*3/uL (1.4-7.4); Neutrophils % 66.3 % (38.7-73.9); Platelet Count 318 T/CUMM (130-400); Red Blood Count 3.61 MC/CUMM (3.8-5.5); Red Cell Distribution Width 13.6 % (9.3-17.3); White Blood Count 8.5 T/CUMM (4-12)
[2016-08-04 06:05] LABS: Calcium 8.9 MG/DL (8.5-10.1); Magnesium 2.4 MG/DL (1.8-2.4); Osmolality,Calculated 284.1 MOS/KG (273-304); Potassium 4.2 MMOL/L (3.5-5.1)
[2016-08-04] MEDS: FLUTICASONE 50 MCG NASAL SPRAY 16 GM BOTTLE BOTH NARES SCH (10:04)
[2016-08-04] MEDS: CITALOPRAM 20 MG TABLET PO SCH (10:04)
[2016-08-04] MEDS: INSULIN REGULAR 100 UNIT/ML SUBCUT SCH ×4 (10:04→20:22)
[2016-08-04] MEDS: MEMANTINE 10 MG TABLET PO SCH ×2 (10:04→20:59)
[2016-08-04] MEDS: DONEPEZIL 10 MG TABLET PO SCH (10:04)
[2016-08-04] MEDS: PANTOPRAZOLE 40 MG VIAL IV SCH (10:10)
--- NOTE | 2016-08-04 10:21 | Discharge Summary ---
Hospital Course - Hospital Course Hospital Course: Mr. Richard is a 71 year old male with past medical history significant for severe dementia and colorectal cancer who is cared for at home by his family is brought into the emergency room tonight. Patient had a recent colostomy performed by Dr. Galina NEELY. He had a follow-up appointment on Tuesday a week ago. They were instructed it was okay to to restart his Plavix. Dr. Willrad wants the patient to be on Plavix secondary to his vascular dementia. Patient today started passing large amounts of blood. His bidzwjnd-me-sji reports that he coughed and threw up some small amount of blood but had a baseball size clot come out of his rectum. They got concerned and brought him up to our hospital for further evaluation. We were requested by the ER to admit him to our service since he has not yet started actual chemotherapy. Patient is unable to really contribute any to his own history secondary to his dementia. He is a DO NOT RESUSCITATE per family. Pt admitted with symptoms and findings as noted above. Plavix was discontinued and serial H/H was monitored. Rectal bleeding stopped and Hb has remained stable. Hb 9.7 on the day of discharge. Pt will remain off Plavix. Consultation was performed by the pt's established oncologist, Dr Doc Shipman. He is making plans for radiation tx. At the time of discharge the pt has met [facility] benefit and desires dc home. Daughter/caregiver present and in agreement with plan. Dr Shipman has arranged follow up. - Time spent with patient Time with patient DS: Greater than 30 minutes (33 min in coordination of care, discussion with staff and family and performnce of discharge duties.) Diagnosis - Discharge Diagnosis (1) Blood per rectum Status: Acute Specialty Discharge - Follow Up or Referrals Follow up with: Doc Shipman MD [Physician] - (Labs on August 10 at office, anytime between 730 and [address] Shipman on August 17: lab at 1030, at 1130.) Angel Richard MD [Physician] - ([facility] in next few days with appointment time.) Discharge Plan - Discharge Data Disposition: Disch To Home/Self Care Condition at Discharge: Stable Discharge Diet: advance to your usual diet Activity: resume usual activities as tolerated - Discharge Medications New fentaNYL 25 MCG/HR PATCH [Duragesic 25 Patch] 1 patch TRANSDERM Q3DAY #10 patch Continue Donepezil [Aricept] 10 mg PO DAILY Memantine HCl [Namenda XR] 1 tablet PO BID Pedi Mv No.79/Ferrous Fumarate [Flintstones w/Iron Chew Tab] 2 tablet PO DAILY Fluticasone 50 Mcg Nasal [place] [Flonase Nasal [place]] 1 spray BOTH NARES DAILY Citalopram [CeleXA] 20 mg PO DAILY Cranberry Fruit Extract [Cranberry] 500 mg PO DAILY QUEtiapine [SEROquel] 25 mg PO BEDTIME HYDROcodone/ACETAMIN 7.5-325 [[place] 7.5-325] 0.5 - 1 tablet PO Q6H PRN #20 tablet PRN Reason: Pain Moderate To Severe (4-10) QUEtiapine [SEROquel] 50 mg PO BEDTIME Discontinued fentaNYL 12 MCG/HR PATCH [Duragesic 12 Patch] 1 patch TRANSDERM Q3DAY Clopidogrel [Plavix] 75 mg PO DAILY Ibuprofen 600 mg PO TID - Follow Up or Referral Follow Up: Doc Shipman MD [Physician] - (Labs on August 10 at office, anytime between 730 and [address]. [address] Shipman on August 17: lab at 1030, DrCarlin at 1130.) Angel Richard MD [Physician] - ([facility] in next few days with appointment time.) - Forms/Instructions Instructions: Rectal Bleeding (DC), Colorectal Cancer (DC) Exam - Constitutional Vitals: Period Temp Pulse Resp BP Sys/[place]herty Pulse Ox Last 24 Hr 98.4 F-99.9 F 60-79 16-20 124-175/70-86 94-97 General appearance: no acute distress, under weight - Head Head exam: Present: normal inspection, normocephalic, atraumatic - Eye Eye exam: Present: EOMI. Absent: scleral icterus Pupils: Present: PAULO - ENT ENT exam: Present: normal exam - Neck Neck exam: Present: normal inspection. Absent: lymphadenopathy, meningismus - Respiratory Respiratory exam: Present: clear to auscultation bilaterally. Absent: rales, rhonchi, wheezes - Cardiovascular Cardiovascular exam: Present: regular rate and rhythm. Absent: gallop, rubs - GI/Abdominal GI/Abdominal exam: Present: normal bowel sounds, other (ostomy site CDI. brown stool) - Extremities Exam Extremities exam: Present: normal inspection, full ROM - Neurological Exam Neurological exam: Present: alert, other (mild confusion) Discharge Results Labs on day of discharge: Labs from last 24 hours 08/04/16 08/04/16 08/04/16 08:03 04:54 04:54 WBC 8.5 RBC 3.61 L Hgb 9.7 L Hct 30.8 L MCV 85.3 L MCH 27 MCHC 31.5 L RDW 13.6 Plt Count 318 MPV 8.9 L Neut % (Auto) 66.3 Lymph % (Auto) 23.1 [place] % (Auto) 8.3 Eos % (Auto) 1.4 Baso % (Auto) 0.4 Neut # (Auto) 5.6 Lymph # (Auto) 2.0 [place] # (Auto) 0.7 Eos # (Auto) 0.1 Baso # (Auto) 0.0 Immature Gran % 0.5 Nucleated RBC % 0.0 Immature Gran # 0.04 Nucleated RBCs # 0.00 Sodium 142 Potassium 4.2 Chloride 106 Carbon Dioxide 28 Anion Gap 12.2 BUN 17 Creatinine 1.10 GFR Calculation 70 BUN/Creatinine Ratio 15.00 Glucose 99 POC Glucose 106 Calculated Osmolality 284.1 Calcium 8.9 Magnesium 2.4 08/03/16 08/03/16 08/03/16 19:56 17:28 16:10 WBC RBC Hgb 9.8 L Hct 30.5 L MCV MCH MCHC RDW Plt Count MPV Neut % (Auto) Lymph % (Auto) [place] % (Auto) Eos % (Auto) Baso % (Auto) Neut # (Auto) Lymph # (Auto) [place] # (Auto) Eos # (Auto) Baso # (Auto) Immature Gran % Nucleated RBC % Immature Gran # Nucleated RBCs # Sodium Potassium Chloride Carbon Dioxide Anion Gap BUN Creatinine GFR Calculation BUN/Creatinine Ratio Glucose POC Glucose 111 H 104 Calculated Osmolality Calcium Magnesium 08/03/16 08/03/16 11:42 11:08 WBC RBC Hgb 10.2 L Hct 32.4 L MCV MCH MCHC RDW Plt Count MPV Neut % (Auto) Lymph % (Auto) [place] % (Auto) Eos % (Auto) Baso % (Auto) Neut # (Auto) Lymph # (Auto) [place] # (Auto) Eos # (Auto) Baso # (Auto) Immature Gran % Nucleated RBC % Immature Gran # Nucleated RBCs # Sodium Potassium Chloride Carbon Dioxide Anion Gap BUN Creatinine GFR Calculation BUN/Creatinine Ratio Glucose POC Glucose 122 H Calculated Osmolality Calcium Magnesium DS: Provider Date of admission: 08/03/16 02:49 Primary care physician: Rod Powell DO Attending physician on admission: Doc Simmons MD Consults: 08/03/16 02:48 Consult to Physician [CONS] Routine Comment: patient of yours Consulting Provider: Doc Shipman Person Notified: Penny Date Notified: 08/03/16 Time Notified: 08:44 08/03/16 04:32 Consult to Dietitian [CONS] Routine Reason for Dietitian: Dietary Consult Discharging clinician: Doc Delgado MD
[2016-08-04 20:59] VITALS: BP 159/91
[2016-08-04] MEDS: QUEtiapine 25 MG TABLET PO SCH (20:59)
== END 2016-08-04 22:04 | disposition home health service (06) | DRG 378 ==
LOC: N.ED 00:08 → N.EDINP 02:49 → SUATTDRO 02:49 → N.EDINP 04:03 → N.4E 05:06
PROVIDERS: ADMIT Internal Medicine; ATTEND Internal Medicine